=== PATIENT | female | born 1985 | race Caucasian/White ===

== ENCOUNTER 2016-10-17 16:58 | Inpatient (IN) | payer OTHER ==
[~2016-10-17] VITALS: Ht 165.1 cm; Wt 104.3 kg
--- NOTE | 2016-10-17 17:31 | NUR ---
Price carrasco in [facility] - 10/17/16 at 1735 by CESAR Patient ambulated to bed 06.
--- NOTE | 2016-10-17 17:31 | NUR ---
Patient ambulated to bed 03.
[2016-10-17] MEDS ORDERED: NACL 0.9% 500 ML IV SCH (17:34)
[2016-10-17] MEDS ORDERED: HYDROmorphone 1 MG/ML AMP IVP ONE ×2 (17:35→18:40)
[2016-10-17] MEDS ORDERED: ONDANSETRON 4 MG/2 ML VIAL IVP ONE ×2 (17:35→17:50)
[2016-10-17 17:48] VITALS: BP 136/86
[2016-10-17] MEDS ORDERED: FAMOTIDINE 20 MG/2 ML VIAL IVP ONE (17:50)
[2016-10-17] MEDS ORDERED: NACL 0.9% 1,000 ML IV SCH (17:50)
--- NOTE | 2016-10-17 17:50 | NUR ---
PATIENT PRESENTS TO ED WITH C/O SEVERE EPIGASTRIC PAIN RADIATING RUQ AND AROUND BACK WITH SEVERE NAUSEA AND REPEATED EMESIS X TODAY HX---DENIES RX---NONE DENIES DIARRHEA; SKIN IS PINK/WARM/DRY; AAOX4 WITH EVEN AND STEADY GAIT; LUNGS CLEAR BL; HR EVEN AND REGULAR; PT DENIES ANY FEVER, CP, SOB, OR COUGH AT THIS TIME; PATIENT STATES PAIN OF 10/10 AT THIS TIME; VSS; PATIENT POSITIONED FOR COMFORT; HOB ELEVATED; BEDRAILS UP X2; BED DOWN. ER MD MADE AWARE OF PT STATUS.
--- NOTE | 2016-10-17 17:59 | NUR ---
Patient went to CT via [facility] per tech.
[2016-10-17 18:15] LABS: BASOPHILS # (AUTO) 0.2 K/uL (0.00-0.22); EOSINOPHILS # (AUTO) 0.2 K/uL (0-0.4); EOSINOPHILS % (AUTO) 1.5 % (0.0-4.0); HEMATOCRIT 42.5 % (36-48); HEMOGLOBIN 14.1 g/dL (12.0-16.0); LYMPHOCYTES # (AUTO) 2.4 K/uL (2.5-16.5); LYMPHOCYTES % (AUTO) 22.4 % (20.5-51.1); MEAN CORPUSCULAR HEMOGLOBIN 27 pg (27-31); MEAN CORPUSCULAR HGB CONC 33 g/dL (33-37); MEAN CORPUSCULAR VOLUME 81 fL (80-94); MONOCYTES # (AUTO) 0.7 K/uL (0.8-1.0); MONOCYTES % (AUTO) 6.1 % (1.7-9.3); NEUTROPHILS # (AUTO) 7.3 K/uL (1.8-7.7); PLATELET COUNT (AUTO) 233 K/uL (140-450); RED BLOOD CELL COUNT(AUTO) 5.25 MIL/uL (4.20-5.40); RED CELL DISTRIBUTION WIDTH 12.5 % (11.6-13.7); WHITE BLOOD COUNT (AUTO) 10.8 K/uL (4.8-10.8)
[2016-10-17 18:21] LABS: ANION GAP 12.1 (8-16); CARBON DIOXIDE 26.8 mmol/L (21-32); POTASSIUM 3.9 mmol/L (3.5-5.1)
[2016-10-17 18:22] LABS: ALBUMIN 3.9 g/dL (3.4-5.0); CREATININE 0.7 mg/dL (0.6-1.3); TOTAL BILIRUBIN 1.3 mg/dL (0.0-1.0); TOTAL PROTEIN, SERUM 8.4 g/dL (6.4-8.2)
--- NOTE | 2016-10-17 18:28 | NUR ---
Patient back from Ct via wheelchair per tech.
[2016-10-17 18:52] LABS: BILIRUBIN,URINE 1+ (NEGATIVE); BLOOD, URINE NEGATIVE (NEGATIVE); COLOR,URINE GREEN (YELLOW); LEUKOCYTE ESTERASE ,URINE TRACE (NEGATIVE); NITRITE, URINE NEGATIVE (NEGATIVE); PROTEIN,URINE NEGATIVE (NEGATIVE); UGLUCOSE NEGATIVE (NEGATIVE)
[2016-10-17 18:54] LABS: APPEARANCE,URINE HAZY (CLEAR)
[2016-10-17] MEDS ORDERED: LORazepam 2 MG/ML VIAL IVP PRN (19:10)
[2016-10-17] MEDS ORDERED: MORPHINE SULFATE 2 MG/ML SYR IVP PRN (19:10)
--- NOTE | 2016-10-17 19:17 | NUR ---
Patient will be admitted to care of DR. FOREMAN. Admited to MS. Will go to room 118. Belongings list completed.
--- NOTE | 2016-10-17 19:25 | NUR ---
REPORT GIVEN TO JOSE COLIN.
[2016-10-17 19:35] VITALS: BP 137/82
[2016-10-17 19:40] LABS: BACTERIA,URINE FEW /HPF (None Seen); ICTOTEST NEGATIVE (NEGATIVE); RBC,URINE NONE SEEN /HPF (0-5); SQUAMOUS EPITHELIAL CELL,UR FEW /LPF (0-3 (FEW)); WBC,URINE 0-5 (RARE) /HPF (0-5)
--- NOTE | 2016-10-17 19:55 | NUR ---
Admitted from ER, with chief complaint of ABD PAIN. 31 y/o, Female, Cooperative, AOX4, ABLE TO VERBALIZE NEEDS. PT C/O ABD PAIN, SEE PAIN ASSESSMENT. WILL MEDICATE ORDERED. PT REPORTS NAUSEA AND VOMITING. PT DENIES SOB OR S/S OF ACUTE DISTRESS. PT ABLE TO AMBULATE WELL INDEPENDENTLY. IV ACCESS ASYMPTOMATIC, PATENT AND INTACT. IVF INFUSING WELL. oriented to call light, bed, phone,television, bathroom, smoking policy, visiting hours, procedures, ID bracelet on. Belongings list checked. DISCUSSED AND REVIEWED PLAN OF CARE WITH PT. PT INSTRUCTED TO BE NPO. PT VERBALIZES UNDERSTANDING. SAFETY MEASURES ENSURED. CALL LIGHT WITHIN REACH. WILL CONTINUE TO MONITOR.
[2016-10-17] MEDS: NACL 0.9% 1,000 ML IV SCH (20:18)
[2016-10-17 20:33] LABS: FREE T4 (FREE THYROXINE) 1.1 ng/dL (0.76-1.46); THYROID STIMULATING HORMONE 1.79 uIU/mL (0.34-3.76)
[2016-10-17] MEDS: ONDANSETRON 4 MG/2 ML VIAL IVP PRN (20:54)
--- NOTE | 2016-10-17 20:55 | NUR ---
PT C/O ABD PAIN, SEE PAIN ASSESSMENT, MEDICATED WITH MORPHINE 4MG IV. PT C/O NAUSEA. ADMINISTERED ZOFRAN WITH EDUCATION. PT VERBALIZES UNDERSTANDING. PT TOLERATED MEDS WELL. CONDITION STABLE. SAFETY MEASURES ENSURED. CALL LIGHT WITHIN REACH. WILL CONTINUE TO MONITOR.
[2016-10-17] MEDS: HYDROmorphone 1 MG/ML AMP IVP PRN (22:32)
--- NOTE | 2016-10-17 22:32 | NUR ---
PT C/O PERSISTENT ABD PAIN. SEE PAIN ASSESSMENT. BP 130/70, RR 18. MEDICATED WITH DILAUDID. PT TOLERATED WELL.
--- NOTE | 2016-10-17 23:00 | NUR ---
PT HEARD VOMITING FROM [facility]. PT REPORTED VOMITING WITH NO EMESIS, PT STATED "I WAS DRY HEAVING." ALREADY GIVEN ZOFRAN. CONDITION STABLE. EMESIS BAG ENSURED. SAFETY MEASURES ENSURED. WILL CONTINUE TO MONITOR.
[2016-10-18] MEDS: ONDANSETRON 4 MG/2 ML VIAL IVP PRN (01:09)
[2016-10-18] MEDS: NACL 0.9% 1,000 ML IV SCH ×5 (01:22→20:49)
[2016-10-18] MEDS: HYDROmorphone 1 MG/ML AMP IVP PRN ×3 (01:48→07:55)
--- NOTE | 2016-10-18 01:53 | NUR ---
PT HEARD VOMITING IN ROOM. ZOFRAN ALREADY GIVEN 1HOUR AGO. PT REPORTS PERSISTENT NAUSEA. WILL PAGE MD FOR ORDERS.
--- NOTE | 2016-10-18 02:15 | NUR ---
PAGED DR GONZALEZ, ORDERS PUT IN BY . WILL CARRY OUT ORDERED
[2016-10-18 04:00] VITALS: BP 120/70
--- NOTE | 2016-10-18 04:50 | NUR ---
PT C/O PAIN. SEE PAIN ASSESSMENT. BP 120/70, RR 16. DILAUDID GIVEN WITH EDUCATION. PT C/O PERSISTENT NAUSEA. PHENERGAN ADMINISTERED WITH EDUCATION. PT VERBALIZES UNDERSTANDING, TOLERATED MEDS WELL. CONDITION STABLE. SAFETY MEASURES ENSURED. CALL LIGHT WITHIN REACH. WILL CONTINUE TO MONITOR.
[2016-10-18] MEDS: PROMETHAZINE 25 MG/ML VIAL IVP PRN ×3 (04:51→17:41)
[2016-10-18 06:10] LABS: BASOPHILS # (AUTO) 0.1 K/uL (0.00-0.22); BASOPHILS % (AUTO) 0.7 % (0.0-2.0); EOSINOPHILS # (AUTO) 0.2 K/uL (0-0.4); EOSINOPHILS % (AUTO) 1.3 % (0.0-4.0); HEMATOCRIT 36.7 % (36-48); HEMOGLOBIN 12.2 g/dL (12.0-16.0); LYMPHOCYTES # (AUTO) 1.7 K/uL (2.5-16.5); MEAN CORPUSCULAR HEMOGLOBIN 27 pg (27-31); MEAN CORPUSCULAR HGB CONC 33 g/dL (33-37); MEAN CORPUSCULAR VOLUME 82 fL (80-94); MONOCYTES # (AUTO) 0.6 K/uL (0.8-1.0); MONOCYTES % (AUTO) 5.4 % (1.7-9.3); NEUTROPHILS % (AUTO) 77.6 % (42.2-75.2); PLATELET COUNT (AUTO) 188 K/uL (140-450); RED BLOOD CELL COUNT(AUTO) 4.45 MIL/uL (4.20-5.40); RED CELL DISTRIBUTION WIDTH 12.5 % (11.6-13.7); WHITE BLOOD COUNT (AUTO) 11.6 K/uL (4.8-10.8)
[2016-10-18] MEDS ORDERED: cefTRIAXone 1,000 MG VIAL ONE (06:14)
[2016-10-18 06:33] LABS: MAGNESIUM 1.8 mg/dL (1.8-2.4); PHOSPHORUS 2.9 mg/dL (2.5-4.9)
--- NOTE | 2016-10-18 07:22 | NUR ---
ENDORSED PLAN OF CARE TO AM NURSE. CONDITION STABLE.
--- NOTE | 2016-10-18 07:23 | NUR ---
RECEIVED REPORT FROM THE CHANNEL SUPERVISOR NURSE AT BEDSIDE FOR CONTINUITY OF CARE. PT IS AWAKE AND ALERT AND ORIENTED. INTRODUCED MYSELF AND UPDATE THE BOARD. IV ON R HAND 20G NS AT 160ML. PT LIPASE AND AMYLASE IS HIGH BUT ON A DOWN TREND. PT C/O OF PAIN IN THE UPPER ABDOMEN. PT WILL MEDICATE. PT IS NPO EXCEPT MEDS AND ICE CHIPS ONLY. WILL BE BACK WITH PAIN MED AND FOR V/S.
[2016-10-18 07:46] LABS: INR 1.1 (0.8-1.2); PARTIAL THROMBOPLASTIN TIME 25.1 secs (22-35.6); PROTHROMBIN TIME 10.4 secs (10.8-13.4)
[2016-10-18 07:53] LABS: ALBUMIN 3.2 g/dL (3.4-5.0); ANION GAP 12.5 (8-16); CARBON DIOXIDE 26.6 mmol/L (21-32); CREATININE 0.7 mg/dL (0.6-1.3); POTASSIUM 4.1 mmol/L (3.5-5.1); TOTAL BILIRUBIN 0.8 mg/dL (0.0-1.0); TOTAL PROTEIN, SERUM 6.9 g/dL (6.4-8.2)
[2016-10-18] MEDS ORDERED: HYDROmorphone 1 MG/ML AMP IVP PRN (07:55)
--- NOTE | 2016-10-18 08:00 | NUR ---
DR PAGAN IS HERE WITH DR AVENDANO. SPOKE TO PT. I ADMINISTERED THE PAIN MED. PT TOLERATED WELL. INCREASED THE IV RATE TO 250ML. WILL BE BACK TO CHECK ON PT.
[2016-10-18] MEDS: DOCUSATE SODIUM 100 MG GELCAP PO SCH ×2 (08:33→20:04)
--- NOTE | 2016-10-18 08:35 | NUR ---
MD ORDERED PROTONIX AND COLACE. PT TOLERATED WELL. WILL CONTINUE TO MONITOR PT.
[2016-10-18] MEDS ORDERED: PANTOPRAZOLE 40 MG INJ VIAL IVP SCH (09:00)
[2016-10-18] MEDS ORDERED: CYCLOBENZAPRINE 10 MG TAB PO PRN ×2 (09:50→15:50)
--- NOTE | 2016-10-18 10:00 | NUR ---
PT CALLED FOR MEDS. I CHECKED ON PT. SHE IS ASKING FOR PAIN MEDS ALREADY. ITS ONLY BEEN 2 HRS. SPOUSE IS THERE. EXPLAINED TO THEM THAT PAIN MED IS ORDERED Q 3 HRS. NOT FOR ANOTHER HOUR. PT AWARE. CAN WAIT. WILL BE BACK WITH PAIN MEDS IN AN HOUR.
[2016-10-18] MEDS: HYDROmorphone PFS 2 MG/ML SYR IVP PRN ×5 (10:50→23:12)
--- NOTE | 2016-10-18 11:00 | NUR ---
ADMINISTERED K PAD ORDERED. ADMINISTERED PAIN MEDS REQUESTED. PT TOLERATED WELL. WILL CONTINUE TO MONITOR PT.
--- NOTE | 2016-10-18 12:05 | NUR ---
PATIENT HAS BEEN SCREENED AND CATEGORIZED MODERATE NUTRITION RISK. PATIENT WILL BE SEEN WITHIN 3-5 DAYS OF ADMISSION. 10/20/16 - 10/22/16 MOISES LEVI MBA, RD
--- NOTE | 2016-10-18 12:47 | NUR ---
PT SLEEPING COMFORTABLY. NO SIGNS OF DISTRESS. WILL CONTINUE TO MONITOR PT.
--- NOTE | 2016-10-18 13:41 | NUR ---
AND HER GIRLS ARE VISITING. PT IN PAIN. WILL GIVE PAIN MED.
--- NOTE | 2016-10-18 14:56 | NUR ---
DROPPED OFF THE URINE SPECIMEN CUP FOR A UA SAMPLE. WILL CONTINUE TO MONITOR PT. PAIN LEVEL MUCH BETTER.
[2016-10-18 16:00] VITALS: BP 128/88
--- NOTE | 2016-10-18 16:40 | NUR ---
STARTED A NEW IV ON THE L HAND 22G. R HAND INFILTRATED, C/O OF PAIN IN HAND AND FOREARM. PT TOLERATED WELL.
--- NOTE | 2016-10-18 18:20 | NUR ---
PT SOUND ASLEEP. NO SIGNS OF DISTRESS. WILL CONTINUE TO MONITOR PT.
--- NOTE | 2016-10-18 19:15 | NUR ---
ENDORSED PT TO THE RESEARCH SCIENTIST AT BEDSIDE FOR CONTINUITY OF CARE. PT IS IN STABLE CONDITION. MOM AT BEDSIDE.
--- NOTE | 2016-10-18 19:20 | NUR ---
RECEIVED PT AWAKE TALKING TO FAMILY MEMBER AT BEDSIDE, COMPLAINING OF ABDOMINAL PAIN, NO N/V AT THIS TIME, WILL MEDICATE PRN WHEN DUE, MAINTAIN ON NPO EXCEPT MEDS ORDERED, IVF INFUSING WELL WITH NS @ 250ML/H, K-PAD IN PLACE, PLAN OF CARE DISCUSSED, CALL LIGHT WITHIN REACH.
--- NOTE | 2016-10-18 23:15 | NUR ---
VITAL SIGNS STABLE, IN PAIN, MEDICATED PRN WITH DILAUDID IVP, CONTINUE TO MONITOR CLOSELY.
[2016-10-19] VITALS: BP 117/75
[2016-10-19] MEDS: NACL 0.9% 1,000 ML IV SCH ×3 (00:54→07:43)
--- NOTE | 2016-10-19 01:35 | NUR ---
AMBULATORY TO BR WITH STEADY GAIT AND VOIDED FREELY, URINE SENT TO LAB FOR CULTURE TEST, MONITORED CLOSELY.
[2016-10-19] MEDS: HYDROmorphone PFS 2 MG/ML SYR IVP PRN ×8 (02:10→23:39)
--- NOTE | 2016-10-19 05:15 | NUR ---
MEDICATED PRN FOR PAIN, IVF INFUSING WELL, MONITORED CLOSELY.
[2016-10-19 06:15] LABS: BASOPHILS # (AUTO) 0.1 K/uL (0.00-0.22); BASOPHILS % (AUTO) 1.3 % (0.0-2.0); EOSINOPHILS # (AUTO) 0.2 K/uL (0-0.4); EOSINOPHILS % (AUTO) 1.7 % (0.0-4.0); HEMOGLOBIN 10.8 g/dL (12.0-16.0); LYMPHOCYTES # (AUTO) 2.3 K/uL (2.5-16.5); LYMPHOCYTES % (AUTO) 24.6 % (20.5-51.1); MEAN CORPUSCULAR HEMOGLOBIN 27 pg (27-31); MEAN CORPUSCULAR HGB CONC 33 g/dL (33-37); MEAN CORPUSCULAR VOLUME 83 fL (80-94); MONOCYTES # (AUTO) 0.9 K/uL (0.8-1.0); MONOCYTES % (AUTO) 9.2 % (1.7-9.3); NEUTROPHILS # (AUTO) 6.1 K/uL (1.8-7.7); NEUTROPHILS % (AUTO) 63.2 % (42.2-75.2); PLATELET COUNT (AUTO) 163 K/uL (140-450); RED BLOOD CELL COUNT(AUTO) 3.98 MIL/uL (4.20-5.40); RED CELL DISTRIBUTION WIDTH 12.8 % (11.6-13.7); WHITE BLOOD COUNT (AUTO) 9.6 K/uL (4.8-10.8)
[2016-10-19 06:29] LABS: MAGNESIUM 1.5 mg/dL (1.8-2.4); PHOSPHORUS 2.8 mg/dL (2.5-4.9)
[2016-10-19 06:36] LABS: CALCIUM 7.4 mg/dL (8.5-10.1); CARBON DIOXIDE 22.5 mmol/L (21-32); CREATININE 0.6 mg/dL (0.6-1.3); POTASSIUM 3.5 mmol/L (3.5-5.1)
[2016-10-19] MEDS ORDERED: MAG SULF 2000 MG/WATER PREMIX 50 ML IV SCH ×2 (07:00→16:33)
--- NOTE | 2016-10-19 07:00 | NUR ---
MAG MARIANA ROY ADMINISTERED WITH EDUCATION PROVIDED, WILL ENDORSE TO EDDA COLIN.
[2016-10-19 07:06] LABS: AMYLASE 121 U/L (25-115); LIPASE 485 U/L (73-393)
[2016-10-19 07:10] LABS: BILIRUBIN,DIRECT 0.1 mg/dL (0.0-0.3); TOTAL BILIRUBIN 0.5 mg/dL (0.0-1.0)
--- NOTE | 2016-10-19 07:15 | NUR ---
RECEIVED PATIENT REPORT. PATIENT AWAKE, ALERT, ORIENTED AND AMBULATORY. PATIENT C/O OF 7/10 ABD PAIN. WILL MEDICATE PATIENT. IV LINE NOTED TO THE RIGHT HAND WITH IVF INFUSING WELL. BED LOWERED WITH CALL LIGHT WITHIN REACH. WILL CONTINUE TO MONITOR
[2016-10-19] MEDS: PROMETHAZINE 25 MG/ML VIAL IVP PRN ×2 (07:47→20:41)
[2016-10-19 08:00] VITALS: BP 124/68
[2016-10-19] MEDS: PANTOPRAZOLE 40 MG INJ VIAL IVP SCH ×2 (08:07→20:39)
[2016-10-19] MEDS: DOCUSATE SODIUM 100 MG GELCAP PO SCH ×2 (08:08→20:39)
--- NOTE | 2016-10-19 09:00 | NUR ---
ADMINISTERED DUE MEDS. PATIENT TOLERATED WELL
--- NOTE | 2016-10-19 11:00 | NUR ---
PATIENT ASLEEP IN BED. NO S/S OF DISTRESS NOTED
[2016-10-19] MEDS ORDERED: KCL 20 MEQ/WATER INJ PREMIX 100 ML IV SCH (13:05)
[2016-10-19] MEDS: LACTATED RINGERS 1,000 ML IV SCH (13:54)
[2016-10-19] MEDS ORDERED: POTASSIUM CHLORIDE 40 MEQ, LIDOCAINE 1% 25 MG in NACL 0.9% 250 ML IV SCH (14:00)
[2016-10-19 14:32] LABS: BILIRUBIN,DIRECT 0.1 mg/dL (0.0-0.3); TOTAL BILIRUBIN 0.6 mg/dL (0.0-1.0); TOTAL PROTEIN, SERUM 6.9 g/dL (6.4-8.2)
[2016-10-19 15:24] LABS: HEMOGLOBIN A1C 5.3 % (4.8-5.6)
[2016-10-19 16:00] VITALS: BP 124/68
--- NOTE | 2016-10-19 16:30 | NUR ---
PATIENT RESTING CALMLY IN BED. NO S/S OF DISTRESS NOTED
[2016-10-19] MEDS ORDERED: CALCIUM GLUCONATE 10% 1,000 MG in NACL 0.9% 50 ML IV SCH (17:00)
--- NOTE | 2016-10-19 19:47 | NUR ---
PATIENT ENDORSED TO THE NIGHT NURSE. PATIENT IN STABLE CONDITION
--- NOTE | 2016-10-19 20:15 | NUR ---
RECEIVED ALERT,ORIENTED. AFEBRILE, NOT IN ACUTE DISTRESS/ COMPLAINED OF ABDOMINAL PAIN. FAMILY MEMBERS AT BEDSIDE. VS STABLE, WILL CONTINUE TO MONITOR. NEEDS ATTENDED.
[2016-10-19 20:35] VITALS: BP 144/88
--- NOTE | 2016-10-19 20:41 | NUR ---
DILAUDID 2.5 MG IVP,PHENERGAN 25 MG IVP GIVEN REQUESTED FOR PAIN. OTHER DUE MEDICATIONS GIVEN. AT BEDSIDE TO SEE PATIENT.
--- NOTE | 2016-10-19 22:30 | NUR ---
ENDORSED CARE TO GREGORY COLIN.
--- NOTE | 2016-10-19 22:54 | NUR ---
ASSUMED CARE OF PATIENT.
--- NOTE | 2016-10-19 23:41 | NUR ---
AWAKE. PAIN MEDS GIVEN ORDERED PER PATIENT REQUEST.
[2016-10-20] MEDS: LACTATED RINGERS 1,000 ML IV SCH ×4 (00:08→15:30)
[2016-10-20] MEDS: PROMETHAZINE 25 MG/ML VIAL IVP PRN ×2 (02:46→18:55)
[2016-10-20] MEDS: HYDROmorphone PFS 2 MG/ML SYR IVP PRN ×6 (02:46→23:49)
[2016-10-20 06:18] LABS: BASOPHILS # (AUTO) 0.1 K/uL (0.00-0.22); BASOPHILS % (AUTO) 1.2 % (0.0-2.0); EOSINOPHILS # (AUTO) 0.1 K/uL (0-0.4); EOSINOPHILS % (AUTO) 1.1 % (0.0-4.0); HEMOGLOBIN 10.7 g/dL (12.0-16.0); LYMPHOCYTES # (AUTO) 2.1 K/uL (2.5-16.5); LYMPHOCYTES % (AUTO) 21.9 % (20.5-51.1); MEAN CORPUSCULAR HEMOGLOBIN 27 pg (27-31); MEAN CORPUSCULAR HGB CONC 33 g/dL (33-37); MEAN CORPUSCULAR VOLUME 83 fL (80-94); MONOCYTES # (AUTO) 0.9 K/uL (0.8-1.0); MONOCYTES % (AUTO) 9.8 % (1.7-9.3); NEUTROPHILS # (AUTO) 6.4 K/uL (1.8-7.7); PLATELET COUNT (AUTO) 153 K/uL (140-450); RED BLOOD CELL COUNT(AUTO) 3.98 MIL/uL (4.20-5.40); RED CELL DISTRIBUTION WIDTH 12.5 % (11.6-13.7); WHITE BLOOD COUNT (AUTO) 9.6 K/uL (4.8-10.8)
[2016-10-20 06:40] LABS: CALCIUM 7.9 mg/dL (8.5-10.1); CARBON DIOXIDE 25.8 mmol/L (21-32); CREATININE 0.6 mg/dL (0.6-1.3); POTASSIUM 3.8 mmol/L (3.5-5.1)
[2016-10-20 06:57] LABS: MAGNESIUM 1.7 mg/dL (1.8-2.4)
--- NOTE | 2016-10-20 07:18 | NUR ---
RECEIVED PATIENT REPORT FROM NIGHT NURSE. PATIENT AWAKE, ALERT AND ORIENTED. NO S/S OF DISTRESS NOTED. PATIENT REPORTS 7/10 ABD PAIN. WILL MEDICATE. IV LINE TO THE RIGHT HAND INTACT WITH IVF INFUSING WELL. BED LOWERED WITH CALL LIGHT WITHIN REACH. WILL CONTINUE TO MONITOR
--- NOTE | 2016-10-20 07:18 | NUR ---
ENDORSED CARE AT BEDSIDE MINNA SCALES RN, PATIENT IN STABLE CONDITION.
[2016-10-20 08:00] VITALS: BP 122/71
[2016-10-20] MEDS ORDERED: MAG SULF 2000 MG/WATER PREMIX 50 ML IV SCH (08:00)
[2016-10-20] MEDS: PANTOPRAZOLE 40 MG INJ VIAL IVP SCH ×2 (08:58→22:33)
[2016-10-20] MEDS: DOCUSATE SODIUM 100 MG GELCAP PO SCH ×2 (09:00→22:00)
[2016-10-20] MEDS ORDERED: BUPIVACAINE-MPF/EPI 0.25% 30 ML VIAL INJ ONE (10:28)
--- NOTE | 2016-10-20 11:30 | NUR ---
PATIENT LEFT THE UNIT FOR SURGERY
[2016-10-20] MEDS ORDERED: MIDAZOLAM 2 MG/2 ML VIAL ONE (11:49)
[2016-10-20] MEDS ORDERED: MEPERIDINE 50 MG/ML SYR ONE (11:50)
[2016-10-20] MEDS ORDERED: fentaNYL 0.05 MG/ML VIAL ONE (11:50)
[2016-10-20] MEDS ORDERED: HYDROmorphone PFS 2 MG/ML SYR ONE (12:41)
[2016-10-20] MEDS ORDERED: DEXAMETHASONE 4 MG/ML VIAL IVP ONE (12:50)
[2016-10-20] MEDS ORDERED: KETOROLAC 30 MG/ML VIAL IVP ONE (12:50)
[2016-10-20] MEDS ORDERED: NEOSTIGMINE 1:1000 10 MG/10 ML VIAL IV ONE (12:50)
[2016-10-20] MEDS ORDERED: GLYCOPYRROLATE 0.2 MG/ML VIAL IV ONE (12:50)
[2016-10-20] MEDS ORDERED: ROCURONIUM 50 MG/5 ML VIAL IV ONE (12:50)
[2016-10-20] MEDS ORDERED: SUCCINYLCHOLINE CHLORIDE 200 MG/10 ML VIAL IV ONE (12:50)
[2016-10-20] MEDS ORDERED: PROPOFOL 200 MG/20 ML VIAL IV ONE (12:50)
[2016-10-20] MEDS ORDERED: ONDANSETRON 4 MG/2 ML VIAL IVP ONE (12:50)
[2016-10-20] MEDS ORDERED: SEVOFLURANE 250 ML BTL INH ONE (12:50)
[2016-10-20] MEDS ORDERED: diphenhydrAMINE 50 MG/ML VIAL IVP PRN (13:35)
[2016-10-20] MEDS ORDERED: HYDROmorphone 1 MG/ML AMP IVP PRN (13:35)
[2016-10-20] MEDS ORDERED: LACTATED RINGERS 1,000 ML IV SCH (13:35)
[2016-10-20] MEDS ORDERED: MEPERIDINE 25 MG/ML SYR IVP PRN (13:35)
[2016-10-20] MEDS ORDERED: ONDANSETRON 4 MG/2 ML VIAL IVP PRN (13:35)
[2016-10-20] MEDS ORDERED: NACL 0.9% 1,000 ML IV SCH (13:35)
[2016-10-20 15:10] LABS: ALBUMIN 2.7 g/dL (3.4-5.0); BILIRUBIN,DIRECT 0.2 mg/dL (0.0-0.3); TOTAL BILIRUBIN 0.5 mg/dL (0.0-1.0); TOTAL PROTEIN, SERUM 6.6 g/dL (6.4-8.2)
[2016-10-20] MEDS: HYDROmorphone PFS 2 MG/ML SYR ONE ×4 (15:17→15:47)
[2016-10-20 16:00] VITALS: BP 122/68
--- NOTE | 2016-10-20 16:00 | NUR ---
PATIENT BACK FROM SURGERY. PATIENT AWAKE AND ALERT. 5 LAPAROSCOPIC INCISIONS NOTED TO THE ABD. INCISIONS CLEAN DRY AND INTACT. VITAL SIGNS WITHIN NORMAL LIMITS. WILL CONTINUE TO MONITOR
--- NOTE | 2016-10-20 19:38 | NUR ---
PATIENT REPORT GIVEN AT BEDSIDE. PATIENT ENDORSED IN STABLE CONDITION
--- NOTE | 2016-10-20 19:39 | NUR ---
RECEIVED REPORT FROM DAY RN FOR CONTINUITY OF CARE. PATIENT IS A&OX4, DISCUSSED PLAN OF CARE WITH PATIENT, VERBALIZED UNDERSTANDING. SHIFT ASSESSMENT DONE, VS TAKEN, STABLE. NO S/S OF RESPIRATORY DISTRESS NOTED. PATIENT STATES PAIN, PREVIOUSLY MEDICATED. PATIENT HAS SMALL INCISIONS TO ABDOMEN NOTED. IV TO RT HAND 22 GAUGE PATENT AND INFUSING FLUIDS WELL. SAFETY MEASURES ENFORCED. CALL LIGHT WITHIN REACH. AT BEDSIDE. WILL CONTINUE TO MONITOR.
[2016-10-20 20:00] VITALS: BP 110/65
--- NOTE | 2016-10-20 20:06 | NUR ---
PATIENT AMBULATED TO RESTROOM WITH ASSISTANCE FROM , TOLERATED FAIR. PATIENT ABLE TO VOID. C/O 10/10 ABDOMINAL PAIN, MEDICATED PER MD ORDER. CALL LIGHT WITHIN REACH.
--- NOTE | 2016-10-20 21:08 | NUR ---
SPOKE TO DR. BYERS, INFORMED HIM OF LATEST LAB RESULTS. NO CHANGE IN ORDERS.
--- NOTE | 2016-10-20 22:00 | NUR ---
SPOKE TO DR. PAGAN REGARDING FLUIDS ORDERS, WILL FOLLOW OUT GIVEN.
[2016-10-20] MEDS: NACL 0.9% 1,000 ML IV SCH (23:31)
--- NOTE | 2016-10-20 23:49 | NUR ---
PT C/O ABDOMINAL PAIN, MEDICATED PER MD ORDER. VS TAKEN AND STABLE. CALL LIGHT WITHIN REACH.
[2016-10-21] MEDS: HYDROcodone/APAP 10/325 MG 1 TAB TAB PO PRN ×3 (01:00→20:43)
--- NOTE | 2016-10-21 01:00 | NUR ---
PT COMPLAINT OF PAIN NOT RELIEVED, MEDICATED WITH NORCO. CALL LIGHT WITHIN REACH. WILL CONTINUE TO MONITOR.
[2016-10-21] MEDS: ZOLPIDEM 5 MG TAB PO PRN ×2 (02:02→23:16)
[2016-10-21] MEDS: HYDROmorphone PFS 2 MG/ML SYR IVP PRN ×2 (02:56→06:01)
--- NOTE | 2016-10-21 02:56 | NUR ---
PT C/O SEVERE ABDOMINAL PAIN, MEDICATED PER MD ORDER. VS TAKEN AND STABLE. WILL CONTINUE TO MONITOR.
--- NOTE | 2016-10-21 04:30 | NUR ---
PATIENT ASLEEP AT THIS TIME. AT BEDSIDE, WILL CONTINUE TO MONITOR.
--- NOTE | 2016-10-21 06:01 | NUR ---
PT C/O ABDOMINAL PAIN, MEDICATED PER MD ORDER. AMBULATED TO RESTROOM AND VOIDED. AT BEDSIDE. WILL CONTINUE TO MONITOR.
[2016-10-21] MEDS ORDERED: FUROSEMIDE 20 MG/2 ML VIAL IVP SCH (07:00)
--- NOTE | 2016-10-21 07:40 | NUR ---
ENDORSED PATIENT TO DAY RN FOR CONTINUITY OF CARE, PATIENT IS IN STABLE CONDITION.
--- NOTE | 2016-10-21 07:41 | NUR ---
RECEIVED ON BED AAOX4. NO SOB NOTED. NO C/O PAIN AT THIS TIME. IV TO RT HAND PATENT AND INTACT. CHEST CLEAR. ABDOMEN SOFT, BOWEL SOUNDS PRESENT BUT HYPOACTIVE. WITH 4 SMALL ABDOMINAL INCISIONS, SITE CLEAN AND DRY, OPEN TO AIR, DERMABOND IN PLACE. ENCOURAGED AMBULATION. ENCOURAGED TO USE INCENTIVE SPIROMETRY. INSTRUCTED TO CALL FOR ASSISTANCE, CALL LIGHT WITHIN REACH. PT VERBALIZED UNDERSTANDING.
[2016-10-21 07:47] LABS: BASOPHILS # (AUTO) 0.1 K/uL (0.00-0.22); BASOPHILS % (AUTO) 0.6 % (0.0-2.0); EOSINOPHILS # (AUTO) 0.2 K/uL (0-0.4); EOSINOPHILS % (AUTO) 1.6 % (0.0-4.0); HEMOGLOBIN 11.6 g/dL (12.0-16.0); LYMPHOCYTES # (AUTO) 1.5 K/uL (2.5-16.5); LYMPHOCYTES % (AUTO) 12.8 % (20.5-51.1); MEAN CORPUSCULAR HEMOGLOBIN 28 pg (27-31); MEAN CORPUSCULAR HGB CONC 33 g/dL (33-37); MEAN CORPUSCULAR VOLUME 83 fL (80-94); MONOCYTES # (AUTO) 0.6 K/uL (0.8-1.0); MONOCYTES % (AUTO) 5.5 % (1.7-9.3); NEUTROPHILS # (AUTO) 9.3 K/uL (1.8-7.7); NEUTROPHILS % (AUTO) 79.5 % (42.2-75.2); PLATELET COUNT (AUTO) 223 K/uL (140-450); RED BLOOD CELL COUNT(AUTO) 4.21 MIL/uL (4.20-5.40); RED CELL DISTRIBUTION WIDTH 12.3 % (11.6-13.7); WHITE BLOOD COUNT (AUTO) 11.7 K/uL (4.8-10.8)
[2016-10-21 07:51] LABS: ALBUMIN 2.8 g/dL (3.4-5.0); ANION GAP 18.5 (8-16); CALCIUM 8.6 mg/dL (8.5-10.1); CARBON DIOXIDE 21.1 mmol/L (21-32); CREATININE 0.7 mg/dL (0.6-1.3); POTASSIUM 4.6 mmol/L (3.5-5.1); TOTAL BILIRUBIN 0.3 mg/dL (0.0-1.0); TOTAL PROTEIN, SERUM 7.2 g/dL (6.4-8.2)
[2016-10-21 07:52] LABS: MAGNESIUM 1.9 mg/dL (1.8-2.4); PHOSPHORUS 3.2 mg/dL (2.5-4.9)
[2016-10-21] MEDS ORDERED: HYDROmorphone PFS 2 MG/ML SYR IVP PRN (07:55)
[2016-10-21 08:00] VITALS: BP 108/63
[2016-10-21] MEDS: PROMETHAZINE 25 MG/ML VIAL IVP PRN (08:43)
[2016-10-21] MEDS: HYDROmorphone PFS 4 MG/ML SYR IVP PRN ×5 (09:28→21:51)
[2016-10-21] MEDS: DOCUSATE SODIUM 100 MG GELCAP PO SCH ×2 (09:33→20:42)
[2016-10-21] MEDS: SIMETHICONE 80 MG TAB.CHEW PO SCH ×3 (09:33→16:04)
[2016-10-21] MEDS: PANTOPRAZOLE 40 MG INJ VIAL IVP SCH ×2 (09:33→20:44)
--- NOTE | 2016-10-21 12:00 | NUR ---
RECEIVED PT. NO S/S OF ACUTE DISTRESS. AAOX4. IV SITE PATENT AND INTACT. CALL LIGHT WITHIN REACH. SAFETY MEASURES ENSURED. WILL CONTINUE TO MONITOR.
[2016-10-21] MEDS ORDERED: ONDANSETRON 4 MG/2 ML VIAL IVP PRN (12:40)
--- NOTE | 2016-10-21 12:46 | NUR ---
PT AMBULATING TO BATHROOM. NO S/S OF ACUTE DISTRESS. PT STATES PAIN IS 7/10. PREVIOUSLY MEDICATED. WILL CONTINUE TO MONITOR.
--- NOTE | 2016-10-21 14:19 | NUR ---
PT RESTING IN BED. NO S/S OF ACUTE DISTRESS. PT DENIES PAIN. CALL LIGHT WITHIN REACH. SAFETY MEASURES ENSURED. WILL CONTINUE TO MONITOR.
[2016-10-21 16:00] VITALS: BP 119/75
--- NOTE | 2016-10-21 16:20 | NUR ---
10/21/16 RD INITIAL ASSESSMENT COMPLETED PLEASE REFER TO NUTRITION ASSESSMENT UNDER CARE ACTIVITY FOR ESTIMATED NUTRITIONAL NEEDS. 1. CONTINUE CLEAR LIQUID DIET, ADVANCE TOLERATED TO LOW FAT DIET 2. RD TO FOLLOW-UP 3-5 DAYS; MODERATE RISK MARTHA HAYWOOD RD
[2016-10-21] MEDS: NACL 0.9% 1,000 ML IV SCH (17:02)
--- NOTE | 2016-10-21 17:07 | NUR ---
PT UP AND AMBULATING OUTSIDE TO SMOKE WITH HOSPITAL STAFF. DR. PAGAN MADE AWARE. SECURITY INFORMED. NO S/S OF ACUTE DISTRESS.
--- NOTE | 2016-10-21 19:15 | NUR ---
ENDORSED PLAN OF CARE TO NIGHT RN. PT REMAINS IN STABLE CONDITION.
--- NOTE | 2016-10-21 19:20 | NUR ---
RECEIVED PT FROM DARIEL RN PT IS AAOX4 AMBULATORY WITH ASSISTNAT TO THE RESTROOM S/P LAP LATISHA ABD BINDER PAIN MEDIC WAS GIVEN BY DAY SHIFT NURSE WILL BE REASSESS RELATIVES AT BED SIDE INITIAL ASSESSMENT DONE
[2016-10-21 20:00] VITALS: BP 102/46
--- NOTE | 2016-10-21 20:44 | NUR ---
PATIENT UNABLE TO START INCENTIVE SPIROMETERY DUE TO SEVERE PAIN AT THIS TIME
[2016-10-21] MEDS: MAGNESIUM HYDROXIDE 2400 MG/30 ML UDC PO PRN (21:57)
--- NOTE | 2016-10-21 22:30 | NUR ---
AFTER PAIN MEDIC GIVEN PT SEEN MORES STABLE, WILL BE ON CONTINUING MONITORING SHE PASS GASES VERBALIZED TO STARTED TO FEEL BETTER.
[2016-10-22] VITALS: BP 106/49
[2016-10-22] MEDS: HYDROmorphone PFS 4 MG/ML SYR IVP PRN ×3 (00:37→06:22)
--- NOTE | 2016-10-22 00:52 | NUR ---
PT VOIDING WELL PAIN MEDIC GIVEN KORDER PT CRYING FOR ABD PAIN
[2016-10-22] MEDS: NACL 0.9% 1,000 ML IV SCH ×3 (03:16→22:53)
[2016-10-22 04:00] VITALS: BP 121/68
--- NOTE | 2016-10-22 04:00 | NUR ---
PT IS ASSISTED TO THE RESTROOM VOIDING WELL AND PASSING GAS
--- NOTE | 2016-10-22 05:00 | NUR ---
PT IS ASSISTED TO THE RESTROOM AND ORAL CARE DONE
--- NOTE | 2016-10-22 06:27 | NUR ---
PT IRRITABLE FOR ABD PAINMEDIC GIVEN ORDER WILL BE MONITORING
[2016-10-22 06:39] LABS: BASOPHILS # (AUTO) 0.1 K/uL (0.00-0.22); BASOPHILS % (AUTO) 1.2 % (0.0-2.0); EOSINOPHILS # (AUTO) 0.1 K/uL (0-0.4); EOSINOPHILS % (AUTO) 1.2 % (0.0-4.0); HEMATOCRIT 30.1 % (36-48); HEMOGLOBIN 9.9 g/dL (12.0-16.0); LYMPHOCYTES # (AUTO) 3.1 K/uL (2.5-16.5); MEAN CORPUSCULAR HEMOGLOBIN 27 pg (27-31); MEAN CORPUSCULAR HGB CONC 33 g/dL (33-37); MEAN CORPUSCULAR VOLUME 82 fL (80-94); MONOCYTES # (AUTO) 0.7 K/uL (0.8-1.0); MONOCYTES % (AUTO) 7.3 % (1.7-9.3); NEUTROPHILS # (AUTO) 5.5 K/uL (1.8-7.7); NEUTROPHILS % (AUTO) 58.3 % (42.2-75.2); PLATELET COUNT (AUTO) 186 K/uL (140-450); RED BLOOD CELL COUNT(AUTO) 3.65 MIL/uL (4.20-5.40); RED CELL DISTRIBUTION WIDTH 12.8 % (11.6-13.7); WHITE BLOOD COUNT (AUTO) 9.5 K/uL (4.8-10.8)
[2016-10-22 06:56] LABS: ANION GAP 10.6 (8-16); CALCIUM 7.8 mg/dL (8.5-10.1); CREATININE 0.6 mg/dL (0.6-1.3); POTASSIUM 3.6 mmol/L (3.5-5.1)
--- NOTE | 2016-10-22 07:10 | NUR ---
RECEIVED REPORT FROM MOY RN. PT SLEEPING IN BED. AAOX4. NO S/S OF ACUTE DISTRESS. IV SITE PATENT AND INTACT. INCISION TO ABDOMEN NOTED. NO DRAINAGE OR REDNESS NOTED. CALL LIGHT WITHIN REACH. SAFETY MEASURES ENSURED. WILL CONTINUE TO MONITOR.
[2016-10-22 07:13] LABS: MAGNESIUM 1.7 mg/dL (1.8-2.4); PHOSPHORUS 2.4 mg/dL (2.5-4.9)
[2016-10-22 07:51] VITALS: BP 104/57
[2016-10-22] MEDS ORDERED: FUROSEMIDE 40 MG/4 ML VIAL IVP SCH (08:00)
[2016-10-22] MEDS: SIMETHICONE 80 MG TAB.CHEW PO SCH ×3 (08:14→16:32)
[2016-10-22] MEDS: DOCUSATE SODIUM 100 MG GELCAP PO SCH ×2 (08:14→20:33)
[2016-10-22] MEDS: PANTOPRAZOLE 40 MG INJ VIAL IVP SCH ×2 (08:15→20:30)
[2016-10-22] MEDS: LORazepam 2 MG/ML VIAL IVP PRN ×2 (08:15→22:53)
--- NOTE | 2016-10-22 08:25 | NUR ---
AM MEDICATIONS GIVEN WITH EDUCATION. PT VERBALIZED UNDERSTANDING. PT TOLERATED WELL. PT STATES SHE FEELS ANXIOUS. ATIVAN ADMINISTERED. WILL CONTINUE TO MONITOR.
[2016-10-22] MEDS ORDERED: MAG SULF 2000 MG/WATER PREMIX 50 ML IV SCH (10:13)
--- NOTE | 2016-10-22 11:42 | NUR ---
PT SLEEPING IN BED. NO S/S OF ACUTE DISTRESS. CALL LIGHT WITHIN REACH. SAFETY MEASURES ENSURED. WILL CONTINUE TO MONITOR.
[2016-10-22] MEDS: HYDROcodone/APAP 10/325 MG 1 TAB TAB PO PRN ×2 (12:47→17:15)
[2016-10-22] MEDS: MAGNESIUM HYDROXIDE 2400 MG/30 ML UDC PO PRN (13:38)
[2016-10-22] MEDS: HYDROmorphone PFS 2 MG/ML SYR IVP PRN ×2 (13:38→20:29)
--- NOTE | 2016-10-22 13:45 | NUR ---
PER DR. BERNARDO ELKINS TO GIVE DILAUDID.
--- NOTE | 2016-10-22 15:37 | NUR ---
PT SLEEPING IN BED. NO S/S OF ACUTE DISTRESS. WILL CONTINUE TO MONITOR.
[2016-10-22 16:00] VITALS: BP 105/67
[2016-10-22] MEDS ORDERED: MAGNESIUM HYDROXIDE 2400 MG/30 ML UDC PO SCH (16:00)
[2016-10-22] MEDS: SENNA 8.6 MG TAB PO SCH ×2 (16:32→20:33)
--- NOTE | 2016-10-22 17:00 | NUR ---
PT UP AND AMBULATING TO BATHROOM. PT HAD BM.
--- NOTE | 2016-10-22 19:23 | NUR ---
ENDORSED PLAN OF CARE TO NIGHT RN. PT REMAINS IN STABLE CONDITION.
--- NOTE | 2016-10-22 19:25 | NUR ---
RECEIVED PT FROM DARIEL COLIN PT IS AAOX4 AMBULATES WITH STORE COORDINATOR S/P COLTON GOOD, IV ON LEFT HAND INFUSING WELL VISITOR AT BED SIDE INITIAL ASSESSMENT DONE.
[2016-10-22 20:00] VITALS: BP 127/66
--- NOTE | 2016-10-22 22:00 | NUR ---
PT HAS A BM VOIDING WELL AFTER PAIN MEDIC VERBALIZED TO FEEL BETTER
[2016-10-23] VITALS: BP 137/76
--- NOTE | 2016-10-23 01:55 | NUR ---
PT SLEEPING WELL NOT DISTRESS NOTED AT THIS TIME
[2016-10-23] MEDS: HYDROmorphone PFS 2 MG/ML SYR IVP PRN ×2 (03:38→07:25)
--- NOTE | 2016-10-23 04:00 | NUR ---
PT RESTING WELL AFTER PAIN MEDIC GIVEN NOT DISTRESS NOTED
--- NOTE | 2016-10-23 06:16 | NUR ---
PT RESTING ON BED NOT SIGNS OF PAIN NOTED AT THIS TIME IV ON LEFT HAND INFUSING WELL
[2016-10-23 06:51] LABS: BASOPHILS % (AUTO) 0.4 % (0.0-2.0); EOSINOPHILS # (AUTO) 0.2 K/uL (0-0.4); EOSINOPHILS % (AUTO) 1.9 % (0.0-4.0); HEMATOCRIT 32.8 % (36-48); HEMOGLOBIN 10.7 g/dL (12.0-16.0); LYMPHOCYTES # (AUTO) 2.2 K/uL (2.5-16.5); LYMPHOCYTES % (AUTO) 25.1 % (20.5-51.1); MEAN CORPUSCULAR HEMOGLOBIN 27 pg (27-31); MEAN CORPUSCULAR HGB CONC 33 g/dL (33-37); MEAN CORPUSCULAR VOLUME 82 fL (80-94); MONOCYTES # (AUTO) 0.6 K/uL (0.8-1.0); MONOCYTES % (AUTO) 7.3 % (1.7-9.3); NEUTROPHILS # (AUTO) 5.8 K/uL (1.8-7.7); NEUTROPHILS % (AUTO) 65.3 % (42.2-75.2); PLATELET COUNT (AUTO) 222 K/uL (140-450); RED CELL DISTRIBUTION WIDTH 12.6 % (11.6-13.7); WHITE BLOOD COUNT (AUTO) 8.8 K/uL (4.8-10.8)
[2016-10-23 06:58] LABS: ANION GAP 11.3 (8-16); CALCIUM 7.9 mg/dL (8.5-10.1); CREATININE 0.6 mg/dL (0.6-1.3); POTASSIUM 3.3 mmol/L (3.5-5.1)
[2016-10-23 07:04] LABS: MAGNESIUM 1.8 mg/dL (1.8-2.4); PHOSPHORUS 3.4 mg/dL (2.5-4.9)
--- NOTE | 2016-10-23 07:26 | NUR ---
RECEIVED PT IN BED. AWAKE, AT BEDISDE. NO SOB NOTED. COMPLAINED OF ABDOMINAL PAIN 10/30, MEDICATED BY NIGHT NURSE. AMBOMINAL WOUND DRESSING INTACT. NO ACTIVE BLEEDING NOTED. PT AMBULATORY WITH ASSIST. SAFETY PRECAUTION IN PLACE. CALL LIGHT WITHIN REACH.
[2016-10-23 08:00] VITALS: BP 116/77
[2016-10-23] MEDS ORDERED: SENNA 8.6 MG TAB PO SCH (09:00)
[2016-10-23] MEDS: PANTOPRAZOLE 40 MG INJ VIAL IVP SCH (09:19)
[2016-10-23] MEDS: DOCUSATE SODIUM 100 MG GELCAP PO SCH (09:21)
[2016-10-23] MEDS: HYDROcodone/APAP 10/325 MG 1 TAB TAB PO PRN (09:45)
[2016-10-23] MEDS ORDERED: HYDROmorphone 2 MG TAB PO PRN (09:55)
[2016-10-23] MEDS ORDERED: HYDROcodone/APAP 10/325 MG 1 TAB TAB PO SCH (12:10)
[2016-10-23] MEDS ORDERED: DOCUSATE SODIUM 100 MG GELCAP PO SCH (12:10)
[2016-10-23] MEDS ORDERED: MOM PO (12:37)
[2016-10-23] MEDS ORDERED: ZOLP5TAB1 PO (12:37)
[2016-10-23] MEDS ORDERED: ACET-4275 PO (12:37)
[2016-10-23] MEDS ORDERED: HYDR2TAB6 PO (12:37)
[2016-10-23] MEDS ORDERED: DOCU-67 PO (12:37)
[2016-10-23] MEDS ORDERED: LORA-476 PO (12:37)
[2016-10-23] MEDS ORDERED: SENN8.6T99 PO (12:37)
[2016-10-23] MEDS ORDERED: CYCL10TA40 PO (12:37)
[2016-10-23] MEDS ORDERED: ONDA4TAB PO (12:37)
[2016-10-23] MEDS ORDERED: POTASSIUM CHLORIDE 10 MEQ TABER PO SCH (12:40)
[2016-10-23] MEDS: SENNA 8.6 MG TAB PO SCH (13:40)
[2016-10-23 13:57] VITALS: BP 128/70
[2016-10-23] MEDS ORDERED: CIPR250T3 PO (14:36)
--- NOTE | 2016-10-23 14:40 | NUR ---
DISCHARGE ORDERS MADE AND CARRIED OUT. HEALTH TEACHINGS AND DISCHARGE INSTRUCTIONS GIVEN TO PT. PT VERBALIZED UNDERSTANDING. AT BEDSIDE. PRESCRIPTIONS PROVIDED. DISCHARGE PACKET GIVEN. NAME ARM BAND REMOVED. IV CANNULA REMOVED AND INTACT. NO SOB NOTED. DENIES ANY PAIN OR DISCOMFORT NOTED AT THIS TIME. ABDOMINAL PHOTO TAKEN.
--- NOTE | 2016-10-23 14:45 | NUR ---
WHEELED PT OUT TO THE HOSPITAL PARKING LOT WITH TO THEIR PRIVATE OWNED VEHICLE. NO SOB NOTED. DENIES ANY PAIN OR DISCOMFORT AT THIS TIME. PT DISCHARGED ON STABLE CONDITION.
== END 2016-10-23 14:45 | disposition home or self-care (01) | DRG 853 ==
LOC: MED 16:58 → MTU 19:17
PROVIDERS: ADMIT Family Medicine; ATTEND Family Medicine
PROC: 0FT44ZZ Resection of Gallbladder, Percutaneous Endoscopic Approach (ICD-10-PCS; principal; 2016-10-20 12:00)
DX: A41.9 Sepsis, unspecified organism (principal); K85.10 Biliary acute pancreatitis without necrosis or infection; E43 Unspecified severe protein-calorie malnutrition; N39.0 Urinary tract infection, site not specified; K80.10 Calculus of gallbladder with chronic cholecystitis without obstruction; F17.210 Nicotine dependence, cigarettes, uncomplicated; D72.829 Elevated white blood cell count, unspecified; E66.01 Morbid (severe) obesity due to excess calories; D64.9 Anemia, unspecified; E83.42 Hypomagnesemia; E83.39 Other disorders of phosphorus metabolism; Z68.38 Body mass index [BMI] 38.0-38.9, adult
CPT/HCPCS: 36415; 71010; 74300; 76700; 76705; 80048; 80053; 80076; 81001; 81025; 82150; 82247; 82248; 83036; 83690; 83735; 84100; 84436; 84439; 84443; 84450; 84478; 84479; 84703; 85025; 85610; 85730; 86886; 86900; 86901; 87081; 87086; 96361; 96374; 96375; 96376; 99285; C9113; J0330; J0610; J0694; J0696; J1100; J1170; J1885; J1940; J2001; J2060; J2175; J2250; J2270; J2405; J2550; J2704; J2710; J3010; J3475; J3480; J3490; J7030; J7060; J7120; Q0092

== ENCOUNTER 2018-01-20 09:19 | Outpatient (CLI) | payer OTHER ==
[~2018-01-20 09:19] MED LIST: CIPR250T3 PO; CYCL10TA14 PO; DOCU-299 PO; HYDR-4924 PO; HYDR2TAB6 PO; LORA-476 PO; MOM PO; ONDA4TAB PO; SENN-89 PO; ZOLP5TAB1 PO
== END 2018-01-20 17:27 | disposition home or self-care (01) ==
LOC: MRD 09:19
PROVIDERS: ATTEND Student in an Organized Health Care Education/Training Program
DX: S90.02XA Contusion of left ankle, initial encounter (principal); X58.XXXA Exposure to other specified factors, initial encounter; Y93.89 Activity, other specified; Y92.89 Other specified places as the place of occurrence of the external cause; Y99.8 Other external cause status
CPT/HCPCS: 73610